=== PATIENT | female | born 1980 | race Caucasian/White ===

== ENCOUNTER → 2024-01-19 08:52 | Outpatient (REF) | payer OTHER, SELFPAY | LOC: HWWDC 08:52 | PROVIDERS: ATTENDING PHYSICIAN Nurse Practitioner Women's Health; FAMILY PHYSICIAN Nurse Practitioner Adult Health | DX: Z12.31 Encounter for screening mammogram for malignant neoplasm of breast (principal) | CPT/HCPCS: 77063; 77067 ==

== ENCOUNTER 2024-02-02 22:59 | Emergency (ER) | payer OTHER, SELFPAY ==
[2024-02-02 23:01] VITALS: BP 154/86
--- NOTE | 2024-02-03 00:28 | ED.GENMED ---
History of Present Illness
<ALBERTA Haas (Lenka) - Last Filed: 02/03/24 01:05>
General
Chief Complaint: Ear Problem
Source: patient
Exam Limitations: none
Time Seen by Provider: 02/03/24 00:28
Nursing documentation reviewed up to this point in time: agreed with
History of Present Illness
History of Present Illness:
Pt is a 43 yo female with hypothyroidism and tinnitus who presents to the ED for concerns over change in hearing x 1.5 hours. Pt reports that tonight she was reading a book at home when suddenly the sounds around her became altered, 'almost like I
they were vibrating or I was under water'. B/L ear involvement, worse in the right ear. She tried chewing gum and plugging her nose and blowing to relieve pressure, which did not improve symptoms. She did not take any medications for this. She
Denies rhinorrhea, nasal congestion, facial pressure, ear trauma, sore throat. No recent travel. Pt was swimming this past weekend. While waiting in the ED lobby, the clogged sensation in her ears spontaneously resolved.
Of note - hx of recurrent ear infections as a child, pt told she had narrow ear canals.
Past History
<ALBERTA Haas (Lenka) - Last Filed: 02/03/24 01:05>
Past History
ED Past Medical History: Hypothyroidism
ED Past Surgical History: None
Social History
Tobacco: Non-smoker
Alcohol: None
Drug: None
Personal:
Living: with family
Employment: Employed
Family History
Family History: Other (noncontributory)
Phy Exam
<ALBERTA Haas (Lenka) - Last Filed: 02/03/24 01:05>
General Physical Exam
General Presentation: well appearing and no apparent distress
General age: appears stated age
General Skin: warm and dry
General Habitus: normal
General Mental: alert
General Hydration: appears well hydrated
ENT Exam
ENT Exam: TM's normal and lymphnodes (nontender, non-palpable)
Pulmonary Exam
Pulmonary Exam: no respiratory distress
Neurological Exam
Neurological Exam: alert and oriented x3
Course
<ALBERTA Haas (Lenka) - Last Filed: 02/03/24 01:05>
Orders/Labs/Results
Orders:
Orders
02/03/24 01:11
Dexamethasone Pf [Decadron] 10 mg PO NOW STA
Vital Signs
Initial and Last Documented VS:
Initial Vital Signs
Temp Pulse Resp BP Pulse Ox
98 F 70 26 154/86 100
02/02/24 23:01 02/02/24 23:01 02/02/24 23:01 02/02/24 23:01 02/02/24 23:01
Last Documented Vital Signs
Temp Pulse Resp BP Pulse Ox
98 F 68 14 122/96 100
02/02/24 23:01 02/03/24 00:37 02/03/24 00:37 02/03/24 00:37 02/03/24 00:37
<Erick Granado DO - Last Filed: 02/03/24 01:15>
Orders/Labs/Results
Orders:
Orders
02/03/24 01:11
Dexamethasone Pf [Decadron] 10 mg PO NOW STA
Vital Signs
Initial and Last Documented VS:
Initial Vital Signs
Temp Pulse Resp BP Pulse Ox
98 F 70 26 154/86 100
02/02/24 23:01 02/02/24 23:01 02/02/24 23:01 02/02/24 23:01 02/02/24 23:01
Last Documented Vital Signs
Temp Pulse Resp BP Pulse Ox
98 F 68 14 122/96 100
02/02/24 23:01 02/03/24 00:37 02/03/24 00:37 02/03/24 00:37 02/03/24 00:37
<ALBERTA Haas (Lenka) - Last Filed: 02/03/24 01:05>
MDM/Problems Addressed
Differential Diagnosis Includes:
43yo female with 1.5 hours of muffled hearing, spontaneously resolved.
DDx: eustachian tube dysfunction, acute otitis media, tinnitus
Plan: one time dose of dexamethasone
<ALBERTA Haas (Lenka) - Last Filed: 02/03/24 01:05>
*Critical Care Note
Total Time (30-74mins, 75-104mins- exclusive of procedures): Not Applicable
ED Attending Note
<ALBERTA Haas (Lenka) - Last Filed: 02/03/24 01:05>
-
Portions of this chart may have been created with voice recognition software.� Occasional wrong word or��sound alike� substitutions may have occurred due to the inherent limitations of voice recognition software.
<Erick Granado DO - Last Filed: 02/03/24 01:15>
ED Attending Note
Patient seen and examined by attending physician: Yes
I performed the substantive portion of visit, reviewed & personally made and approve the management plan that is documented in note by myself or LAUREN.: Yes
ED Attending Note:
Pleasant 43-year-old female presents with a subjective feeling of 'being underwater '. She states that she felt like she had bubbles in her ears and had a change in hearing for about an hour and a half. Patient felt like she had to equalize her
ears but was unable to. She tried several methods to equalize with without results. She took no medications. She came into the emergency department for evaluation. While waiting in the waiting room her symptoms resolved. Patient was seen in
conjunction with the PA student. I have reviewed and agree with the history and treatment plan presented. On my independent physical exam, patient is awake, alert, and oriented x3, no acute distress. No rhinorrhea. Oropharynx is clear.
Bilateral tympanic membranes are pearly and intact. No erythema. No signs of otitis media or externa. Patient could not replicate the symptoms. Will give a dose of Decadron. Follow-up with ENT as needed.
Discharge Plan
Departure
Patient Disposition: Home (Routine Discharge)
Date of Disposition: 02/03/24
Time of Disposition: 01:14
Patient with high blood pressure during this ER visit?: Yes
Condition: Good
Discharge Problem:
Acute dysfunction of both eustachian tubes
Instructions: Eustachian tube problems, BLOOD PRESSURE
Prescriptions:
No Action
oxycodone-acetaminophen [Percocet] 5-325 mg tablet
1 tab PO Q4H PRN (Reason: pain) Qty: 14 0RF
famotidine 20 mg Tablet
20 mg PO BID
metformin 1,000 mg Tablet
1,000 mg PO DAILY
Mounjaro 2.5 mg/0.5 mL Pen Injector
2.5 mg SC QWEEK
Rx Instructions:
for 4 weeks
Vitamin
1 tab PO DAILY
Synthroid
135 mcg PO
Referrals:
Deonte Zambrano MD [Active] - As needed
Elena Nick CRNP [Family Provider] -
Activity Restrictions/Additional Instructions:
It was a pleasure meeting you and taking part in your care. We hope for your continued healing and wellness.
Please read discharge instructions in their entirety. However, they are for general education and may not describe your exact diagnosis at discharge. Information on your ER visit and medical conditions were discussed with you along with appropriate
follow up information...
If indicated, please take your medications as instructed and indicated on discharge paperwork.
Please schedule a follow up appointment as directed. Call to schedule an appointment
Please return to the emergency department with ANY change in, persisting, or worsening of symptoms. If any of your symptoms do not improve, or persist, or become more severe within 6-12 hours, please return to the emergency department for further
care.
Please return to the emergency department if you develop a headache, neck pain/stiffness, fever greater than 100.4F, chest pain, shortness of breath, persistent nausea, vomiting, slurred speech, difficulty walking, numbness/tingling, weakness, signs
of infection or any other symptoms that are worrisome to you.
If you have any questions or concerns please do not hesitate to call the Hospital at or E-mail me directly at [email or web address]
Interventions
Interventions:
*Risk Screen - Suicide Last Done: 02/02/24 23:01
*Neglect/Abuse Screening Last Done: 02/02/24 23:01
ED- Fall Risk Assessment Last Done: 02/03/24 00:20
Discharge Date and Time
Print Language: [place]
[2024-02-03 00:37] VITALS: BP 122/96
[2024-02-03] MEDS: DECADRON 10 MG PO (01:46)
== END 2024-02-03 01:50 | disposition home or self-care (01) ==
LOC: EMR 22:59
PROVIDERS: EMERGENCY PHYSICIAN Student in an Organized Health Care Education/Training Program; FAMILY PHYSICIAN Nurse Practitioner Adult Health
DX: H69.93 Unspecified Eustachian tube disorder, bilateral (principal); R03.0 Elevated blood-pressure reading, without diagnosis of hypertension; E03.9 Hypothyroidism, unspecified
CPT/HCPCS: 99283

== ENCOUNTER → 2025-01-19 09:30 | Outpatient (REF) | payer OTHER, SELFPAY | LOC: HWWDC 09:30 | PROVIDERS: ATTENDING PHYSICIAN Nurse Practitioner Women's Health; FAMILY PHYSICIAN Nurse Practitioner Adult Health | DX: Z12.31 Encounter for screening mammogram for malignant neoplasm of breast (principal) | CPT/HCPCS: 77063; 77067 ==